=== PATIENT | male | born 1970 | race Caucasian/White ===

== ENCOUNTER 2017-02-02 10:45 | Emergency (ER) | payer OTHER ==
[2017-02-02 10:55] VITALS: RESP 16; TEMP 97.7
--- NOTE | 2017-02-02 11:40 | EDPHY ---
H & P Time Seen by Provider: 02/02/17 11:06 HPI/ROS: CHIEF COMPLAINT: Laceration left hand HISTORY OF PRESENT ILLNESS: 46-year-old male presents to the emergency department a laceration to his left hand. The patient was opening a gift which was a knife and patient accidentally cut the palm of his left hand. The incident happened just prior to arrival. He is right-hand dominant. He believes his tetanus shot is current. Denies any other trauma or injury. ROS: Denies numbness or tingling in his fingers, retained foreign body, pain in his left. Past Medical/Surgical History: Cervical spine fusion Social History: and lives in [place] Smoking Status: Never smoked Physical Exam: On examination the patient has a 4 cm laceration to the base of the palm of the left hand overlying hypo thenar eminence. No active bleeding noted. Normal sensation to light touch with normal 2 point discrimination. No evidence of tendon injury identified. He has full range of motion of his fingers with normal strength. No evidence of retained foreign body. No other injuries noted. Constitutional: Initial Vital Signs Temperature (C) 36.5 C 02/02/17 10:50 Heart Rate 60 02/02/17 10:50 Respiratory Rate 16 02/02/17 10:50 Blood Pressure 123/74 H 02/02/17 10:50 O2 Sat (%) 98 02/02/17 10:50 O2 Delivery Mode Room Air Allergies/Adverse Reactions: No Known Allergies Allergy (Verified 02/02/17 10:52) Home Medications: Medication Instructions Recorded Finasteride [Proscar 5 MG (*)] 5 mg PO DAILY 02/02/17 Zolpidem Tartrate [Ambien 5MG (*)] 5 mg PO HS 02/02/17 l-Mefol/A-Cyst/Meb12/Algal Oil 1 each PO 02/02/17 [l-Nmhbotdvqxqi-Qjgnrrpegof-Nac] MDM/Departure - MDM Procedures: Laceration repair. Verbal consent was obtained from the patient. The 4 cm laceration on the left palm was anesthetized using 1% lidocaine with epinephrine. The wound was irrigated with saline, draped and explored to its base with a gloved finger. Small laceration noted to hypo thenar eminence muscle. No active bleeding noted. No tendon injury was identified. The wound was repaired with 4 0 Vicryl , 3 sutures and 4 0 Ethilon, 8 sutures. The wound repair was complex. The procedure was performed by myself. ED Course/Re-evaluation: 46-year-old male presents to the emergency department with laceration to his left hand, the wound was repaired, see procedure note. Patient was given wound care precautions. - Depart Disposition: Home, Routine, Self-Care Clinical Impression: Laceration of left hand Qualifiers: Encounter type: initial encounter Foreign body presence: without foreign body Qualified Code(s): S61.412A - Laceration without foreign body of left hand, initial encounter Condition: Good Instructions: Care For Your Stitches (ED), Laceration (ED), Acute Wounds (ED) Additional Instructions: Wound Care Follow-Up: Removal of sutures in 10 days. Suture removal is complimentary in uncomplicated cases. Infection or abnormal findings would require reevaluation by the MD. In that case, you may be billed. Ibuprofen 600mg every 8 hours for pain as directed. Return if you develop signs or symptoms of infection or if you feel worse in any way. Referrals: Bernardino Freire MD [Primary Care Provider] - As per Instructions
[2017-02-02 12:14] VITALS: BP 118/61; PULSE 59; O2SAT 99
== END 2017-02-02 12:14 | disposition home or self-care (01) ==
PROC: 0HQGXZZ Repair Left Hand Skin, External Approach (ICD-10-PCS; principal; 2017-02-02)
DX: S61.412A Laceration without foreign body of left hand, initial encounter (principal); W26.0XXA Contact with knife, initial encounter; Y99.8 Other external cause status; Y93.89 Activity, other specified